=== PATIENT | female | born 1980 | race Caucasian/White ===

== ENCOUNTER 2017-01-26 15:27 | Inpatient (IN) | payer BC, OTHER ==
[~2017-01-26] VITALS: Ht 170.2 cm; Wt 57.9 kg
[~2017-01-26 15:27] MED LIST: GLUC1CAP14; MOBI7.5T PO; TRI SPRINTEC; Z.0.BCPILL
[2017-01-26 15:41] VITALS: BP 115/64; PULSE 124; RESP 20; TEMP 101; O2SAT 100
[2017-01-26 15:45] VITALS: BP 115/64; PULSE 124; RESP 20; TEMP 101; O2SAT 100
[2017-01-26 15:53] VITALS: BP 115/64; PULSE 121; RESP 20; TEMP 101; O2SAT 100
[2017-01-26] MEDS ORDERED: SODIUM CHLOR 0.9% 1000 ML INJ 1,000 ML IV ONE ×2 (15:57→17:45)
[2017-01-26] MEDS ORDERED: SODIUM CHLOR 0.9% 1000 ML INJ 800 ML IV ONE (15:57)
[2017-01-26] MEDS ORDERED: birth control (16:00)
[2017-01-26] MEDS ORDERED: CYMB60CA PO (16:00)
[2017-01-26] MEDS ORDERED: METO25TA3 PO (16:00)
[2017-01-26] MEDS ORDERED: ACETAMINOPHEN 325 MG TAB PO ONE (16:00)
[2017-01-26] MEDS ORDERED: PRED5TAB PO (16:00)
[2017-01-26] MEDS ORDERED: MORPHINE SULFATE 4 MG/ML INJ IV PUSH ONE ×2 (16:00→17:45)
[2017-01-26] MEDS ORDERED: MELO7.5T4 PO (16:00)
[2017-01-26] MEDS ORDERED: ONDANSETRON HCL 4 MG/2 ML VIAL IV PUSH ONE (16:00)
[2017-01-26] MEDS ORDERED: ZITHTAB PO (16:00)
--- NOTE | 2017-01-26 16:46 | RADRPT ---
EXAM DATE/TIME: 01/26/2017 16:14 [place] COMPARISON: No previous studies available for comparison. INDICATIONS : Fever MEDICAL HISTORY : None. SURGICAL HISTORY : None. ENCOUNTER: Initial ACUITY: 1 day PAIN SCORE: 0/10 LOCATION: chest FINDINGS: A single view of the chest demonstrates the lungs to be symmetrically aerated without evidence of mas s, infiltrate or effusion. The cardiomediastinal contours are unremarkable. Osseous structures are intact. CONCLUSION: No acute disease. Coy Sapp Jr., MD on January 26, 2017 at 16:45 Board Certified Radiologist. This report was verified electronically.
[2017-01-26 16:57] LABS: BASOPHIL % 0.3 % (0.0-2.0); HEMATOCRIT 40.4 % (35.0-46.0); HEMO FLAGS DIFF FINAL; LYMPHOCYTE # 0.3 TH/MM3 (1.0-4.8); MEAN CELL VOLUME 94.2 FL (80.0-100.0); MEAN CORPUSCULAR HEMOGLOBIN 31.6 PG (27.0-34.0); MEAN CORPUSCULAR HGB CONC 33.6 % (32.0-36.0); MONO % 8.4 % (0.0-8.0); NEUT % 87.3 % (16.0-70.0); PLATELET COUNT 183 TH/MM3 (150-450); RED BLOOD COUNT 4.29 MIL/MM3 (4.00-5.30); RED CELL DISTRIBUTION WIDTH 11.6 % (11.6-17.2)
[2017-01-26 16:59] LABS: BACTERIA, URINE RARE /hpf; BLOOD, URINE NEG (NEG); GLUCOSE,URINE NEG (NEG); KETONE, URINE 10 mg/dL (NEG); NITRITE,URINE NEG (NEG); URINE COLOR YELLOW (YELLW/STRAW)
[2017-01-26 17:06] LABS: COMMENT (UR) CATH-CULTURE IND; CULTURE IF INDICATED CATH CULTURE IND
[2017-01-26 17:07] LABS: APTT (PATIENT) 27.1 SEC (24.3-30.1); INTERNATIONAL NORMALIZED RATIO 0.9 RATIO; PROTHROMBIN TIME - PATIENT 10.1 SEC (9.8-11.6)
[2017-01-26 17:17] LABS: ANION GAP 11 MEQ/L (5-15); AST (GOT) 12 U/L (15-37); BICARBONATE 23.5 MEQ/L (21.0-32.0); BLOOD UREA NITROGEN 10 MG/DL (7-18); CHLORIDE 99 MEQ/L (98-107); GLOMERULAR FILTRATION RATE 71 ML/MIN (>89); MAGNESIUM 1.4 MG/DL (1.5-2.5); POTASSIUM 3.6 MEQ/L (3.5-5.1); SODIUM (NA) 133 MEQ/L (136-145)
[2017-01-26 17:23] LABS: ALKALINE PHOSPHATASE 51 U/L (45-117); ALT (GPT) 25 U/L (10-53); TOTAL BILIRUBIN ADULT 0.9 MG/DL (0.2-1.0)
[2017-01-26 17:29] LABS: CREATINE KINASE 66 U/L (26-192)
[2017-01-26] MEDS ORDERED: KETOROLAC TROMETHAMINE 30 MG/ML (IVP) VIAL IV PUSH ONE (17:45)
[2017-01-26 18:03] VITALS: BP 99/57; PULSE 96; RESP 16; TEMP 99; O2SAT 100
[2017-01-26] MEDS: SODIUM CHLOR 0.45% 1000 ML INJ 1,000 ML IV SCH (18:12)
[2017-01-26] MEDS ORDERED: NALOXONE HCL 0.4 MG/ML AMP IV PRN (18:15)
[2017-01-26] MEDS ORDERED: SENNOSIDES 8.6 MG TAB PO PRN (18:15)
[2017-01-26] MEDS ORDERED: BISACODYL 10 MG SUPP RECTAL PRN (18:15)
[2017-01-26] MEDS ORDERED: ONDANSETRON HCL 4 MG/2 ML VIAL IVP PRN (18:15)
[2017-01-26] MEDS ORDERED: LACTULOSE SYRUP 20 GM/30 ML CUP PO PRN (18:15)
[2017-01-26] MEDS ORDERED: SODIUM CHLORIDE 0.9% FLUSH 10 ML FLUSH IV FLUSH PRN (18:15)
[2017-01-26] MEDS ORDERED: ACETAMINOPHEN 325 MG TAB PO PRN (18:15)
[2017-01-26] MEDS ORDERED: MAGNESIUM HYDROXIDE SUSP 30 ML CUP PO PRN (18:15)
--- NOTE | 2017-01-26 18:31 | PD ---
HPI Chief Complaint: Fever Time Seen by Provider: 15:57 Travel History International Travel<30 days: Yes Contact w/Intl Traveler<30days: [place] Country Traveled to: [place] Traveled to known affect area: No History of Present Illness HPI The patient is a 36-year-old female who presents to the emergency department for fever and headache. The patient was recently in [place], return Thursday night. Prior to arrival she did have some mild nausea with a few intermittent episodes of loose stool, approximate 5-6 times a day which she attributed to the food and eating fruit in [place]. The patient states she developed a headache earlier today which is retro-orbital, nonradiating, and is associated with some posterior head pain, neck pain, back pain, and diffuse myalgias and body aches. The patient was seen at an urgent care earlier today where she had an influenza screen performed which was negative. The patient returned home, however, her pain increased and was severe, 10/10. She compares the pain she had earlier today when she had osteomyelitis several years ago after being placed on prednisone. She denies any cough, sore throat, or dysuria. The patient denies any visible rash. Immunizations are up-to-date. No family members have similar symptoms. PFSH Past Medical History Arthritis: Yes (Rheumatoid) Autoimmune Disease: Yes (RA) Blood Disorders: No Depression: Yes Heart Rhythm Problems: Yes Cancer: No Cardiovascular Problems: Yes High Cholesterol: No Chemotherapy: No Chest Pain: Yes Congestive Heart Failure: No Endocrine: No Gastrointestinal Disorders: Yes GERD: Yes (Indigestion) Genitourinary: Yes Hepatitis: No Hiatal Hernia: No Hypertension: No Immune Disorder: Yes Kidney Stones: No Musculoskeletal: No Neurologic: No Psychiatric: No Reproductive: No Respiratory: No Immunizations Current: Yes Myocardial Infarction: No Radiation Therapy: No Renal Failure: No Ulcer: Yes ?: Not LMP: 01/16/2017 : 1 Para: 0 : 1 Past Surgical History Abdominal Surgery: No AICD: No Appendectomy: No Arteriovenous Shunt: No Cardiac Surgery: No Cholecystectomy: No Ear Surgery: No Endocrine Surgery: No Eye Surgery: No Genitourinary Surgery: No Gynecologic Surgery: No Insulin Pump: No Joint Replacement: No Oral Surgery: No Pacemaker: No Thoracic Surgery: No Other Surgery: Yes (Breast) Social History Alcohol Use: Yes (SOCIALLY) Tobacco Use: No Substance Use: No Allergies-Medications (Allergen,Severity, Reaction): Coded Allergies: penicillin G (Unverified Allergy, Severe, 01/26/17) latex (Unverified Allergy, Intermediate, Itching, 01/26/17) cephalexin (Unverified Allergy, Mild, 01/26/17) Reported Meds & Prescriptions Reported Meds & Active Scripts Active Reported [ control] Zithromax Z-Nicolas (Azithromycin) 250 Mg Dspk 250 Mg PO DIRECTED 500 MG (2 tabs) day 1, then 1 tab days 2-5. Prednisone 5 Mg Tab 5 Mg PO BID Meloxicam 7.5 Mg Tab 7.5 Mg PO DAILY PRN Metoprolol Tartrate 25 Mg Tab 25 Mg PO BID Cymbalta DR (Duloxetine HCl) 60 Mg Capdr 60 Mg PO DAILY [tri-sprintec] Review of Systems Except as stated in HPI: all other systems reviewed are Neg General / Constitutional: Positive: Fever Eyes: Positive: Photophobia HENT: Positive: Headaches, Neck Pain Cardiovascular: No: Chest Pain or Discomfort Respiratory: No: Cough, Shortness of Breath Gastrointestinal: Positive: Nausea, Diarrhea, No: Vomiting, Abdominal Pain Genitourinary: No: Dysuria Musculoskeletal: Positive: Myalgias, Arthralgias, Pain Skin: No Rash Neurologic: Positive: Headache, No: Change in Mentation, Paresthesia, Sensory Disturbance Physical Exam Narrative GENERAL: Awake, alert, pleasant 36 year-old female who appears her stated age and appears in moderate discomfort. SKIN: Focused skin assessment warm/dry. HEAD: Atraumatic. Normocephalic. EYES: Pupils equal and round. Pupils are 4 mm bilateral and reactive.. ENT: No nasal bleeding or discharge. Mucous membranes pink and moist. No erythema or exudate noted. NECK: Trachea midline. No JVD. No meningeal signs noted. CARDIOVASCULAR: Regular, tachycardic with a heart rate of 120. RESPIRATORY: No accessory muscle use. Clear to auscultation. Breath sounds equal bilaterally. GASTROINTESTINAL: Abdomen soft, non-tender, nondistended. No rebound tenderness. Back: No CVA tenderness. MUSCULOSKELETAL: No obvious deformities. No clubbing. No cyanosis. No edema. NEUROLOGICAL: Awake and alert. No obvious cranial nerve deficits. Motor grossly within normal limits. Normal speech. Nonfocal on exam. PSYCHIATRIC: Appropriate mood and affect; insight and judgment normal. Data Data Last Documented VS Vital Signs Date Time Temp Pulse Resp B/P (MAP) Pulse Ox O2 Delivery O2 Flow Rate FiO2 01/26/17 18:03 99.0 96 16 99/57 (71) 100 Nasal Cannula 2.00 Orders Orders Electrocardiogram (01/26/17 15:57) Complete Blood Count With Diff (01/26/17 15:57) Comprehensive Metabolic Panel (01/26/17 15:57) Prothrombin Time / Inr (Pt) (01/26/17 15:57) Act Partial Throm Time (Ptt) (01/26/17 15:57) Lactic Acid Sepsis Protocol (01/26/17 15:57) Magnesium (Mg) (01/26/17 15:57) Lipase (01/26/17 15:57) Ckmb (Isoenzyme) Profile (01/26/17 15:57) Troponin I (01/26/17 15:57) Urinalysis - C+S If Indicated (01/26/17 15:57) Lumbar Puncture (01/26/17 15:57) Csf Culture And Gram Stain (01/26/17 15:57) Influenzae A/B Antigen (01/26/17 15:57) Blood Culture (01/26/17 15:57) Chest, Single Ap (01/26/17 15:57) Blood Glucose (01/26/17 15:57) Ecg Monitoring (01/26/17 15:57) Iv Access Insert/Monitor (01/26/17 15:57) Oximetry (01/26/17 15:57) Oxygen Administration (01/26/17 15:57) Acetaminophen (Tylenol) (01/26/17 16:00) Sodium Chlor 0.9% 1000 Ml Inj (Ns 1000 M (01/26/17 15:57) Sodium Chlor 0.9% 1000 Ml Inj (Ns 1000 M (01/26/17 15:57) Malaria (01/26/17 15:57) Morphine Inj (Morphine Inj) (01/26/17 16:00) Ondansetron Inj (Zofran Inj) (01/26/17 16:00) Type In Test Lab Collected (01/26/17 16:15) Urine Culture (01/26/17 16:13) Sodium Chlor 0.9% 1000 Ml Inj (Ns 1000 M (01/26/17 17:45) Morphine Inj (Morphine Inj) (01/26/17 17:45) Ketorolac Inj (Toradol Inj) (01/26/17 17:45) Admit Order (Ed Use Only) (01/26/17 18:06) Labs Laboratory Tests Test 01/26/17 16:13 01/26/17 16:20 01/26/17 16:25 01/26/17 17:00 Urine Color YELLOW Urine Turbidity CLEAR Urine pH 5.0 Urine Specific [place] 1.012 Urine Protein NEG mg/dL Urine Glucose (UA) NEG mg/dL Urine Ketones 10 mg/dL Urine Occult Blood NEG Urine Nitrite NEG Urine Bilirubin NEG Urine Urobilinogen LESS THAN 2.0 MG/DL Urine Leukocyte Esterase NEG Urine RBC LESS THAN 1 /hpf Urine Bacteria RARE /hpf Microscopic Urinalysis Comment CATH-CULTURE IND Blood Urea Nitrogen 10 MG/DL Creatinine 0.90 MG/DL Random Glucose 96 MG/DL Total Protein 6.9 GM/DL Albumin 3.6 GM/DL Calcium Level 7.9 MG/DL Magnesium Level 1.4 MG/DL Alkaline Phosphatase 51 U/L Aspartate Amino Transf (AST/SGOT) 12 U/L Alanine Aminotransferase (ALT/SGPT) 25 U/L Total Bilirubin 0.9 MG/DL Sodium Level 133 MEQ/L Potassium Level 3.6 MEQ/L Chloride Level 99 MEQ/L Carbon Dioxide Level 23.5 MEQ/L Anion Gap 11 MEQ/L Estimat Glomerular Filtration Rate 71 ML/MIN Total Creatine Kinase 66 U/L Troponin I LESS THAN 0.02 NG/ML Lipase 113 U/L White Blood Count 8.0 TH/MM3 Red Blood Count 4.29 MIL/MM3 Hemoglobin 13.6 GM/DL Hematocrit 40.4 % Mean Corpuscular Volume 94.2 FL Mean Corpuscular Hemoglobin 31.6 PG Mean Corpuscular Hemoglobin Concent 33.6 % Red Cell Distribution Width 11.6 % Platelet Count 183 TH/MM3 Mean Platelet Volume 8.4 FL Neutrophils (%) (Auto) 87.3 % Lymphocytes (%) (Auto) 4.0 % Monocytes (%) (Auto) 8.4 % Eosinophils (%) (Auto) 0.0 % Basophils (%) (Auto) 0.3 % Neutrophils # (Auto) 7.0 TH/MM3 Lymphocytes # (Auto) 0.3 TH/MM3 Monocytes # (Auto) 0.7 TH/MM3 Eosinophils # (Auto) 0.0 TH/MM3 Basophils # (Auto) 0.0 TH/MM3 CBC Comment DIFF FINAL Differential Comment Prothrombin Time 10.1 SEC Prothromb Time International Ratio 0.9 RATIO Activated Partial Thromboplast Time 27.1 SEC Lactic Acid Level 1.4 mmol/L MDM Medical Decision Making Medical Screen Exam Complete: Yes Emergency Medical Condition: Yes Medical Record Reviewed: Yes Interpretation(s) EKG reveals sinus tachycardia with a heart rate of 108. Short NH interval of 112 ms. Nonspecific T-wave changes. Last Impressions Chest X-Ray 01/26/17 1550 Signed Impressions: Service Date/Time: Thursday, January 26, 2017 16:14 - CONCLUSION: No acute disease. Coy Sapp Jr., MD Laboratory Tests Test 01/26/17 16:13 01/26/17 16:20 01/26/17 16:25 01/26/17 17:00 Urine Color YELLOW Urine Turbidity CLEAR Urine pH 5.0 Urine Specific [place] 1.012 Urine Protein NEG mg/dL Urine Glucose (UA) NEG mg/dL Urine Ketones 10 mg/dL Urine Occult Blood NEG Urine Nitrite NEG Urine Bilirubin NEG Urine Urobilinogen LESS THAN 2.0 MG/DL Urine Leukocyte Esterase NEG Urine RBC LESS THAN 1 /hpf Urine Bacteria RARE /hpf Microscopic Urinalysis Comment CATH-CULTURE IND Blood Urea Nitrogen 10 MG/DL Creatinine 0.90 MG/DL Random Glucose 96 MG/DL Total Protein 6.9 GM/DL Albumin 3.6 GM/DL Calcium Level 7.9 MG/DL Magnesium Level 1.4 MG/DL Alkaline Phosphatase 51 U/L Aspartate Amino Transf (AST/SGOT) 12 U/L Alanine Aminotransferase (ALT/SGPT) 25 U/L Total Bilirubin 0.9 MG/DL Sodium Level 133 MEQ/L Potassium Level 3.6 MEQ/L Chloride Level 99 MEQ/L Carbon Dioxide Level 23.5 MEQ/L Anion Gap 11 MEQ/L Estimat Glomerular Filtration Rate 71 ML/MIN Total Creatine Kinase 66 U/L Troponin I LESS THAN 0.02 NG/ML Lipase 113 U/L White Blood Count 8.0 TH/MM3 Red Blood Count 4.29 MIL/MM3 Hemoglobin 13.6 GM/DL Hematocrit 40.4 % Mean Corpuscular Volume 94.2 FL Mean Corpuscular Hemoglobin 31.6 PG Mean Corpuscular Hemoglobin Concent 33.6 % Red Cell Distribution Width 11.6 % Platelet Count 183 TH/MM3 Mean Platelet Volume 8.4 FL Neutrophils (%) (Auto) 87.3 % Lymphocytes (%) (Auto) 4.0 % Monocytes (%) (Auto) 8.4 % Eosinophils (%) (Auto) 0.0 % Basophils (%) (Auto) 0.3 % Neutrophils # (Auto) 7.0 TH/MM3 Lymphocytes # (Auto) 0.3 TH/MM3 Monocytes # (Auto) 0.7 TH/MM3 Eosinophils # (Auto) 0.0 TH/MM3 Basophils # (Auto) 0.0 TH/MM3 CBC Comment DIFF FINAL Differential Comment Prothrombin Time 10.1 SEC Prothromb Time International Ratio 0.9 RATIO Activated Partial Thromboplast Time 27.1 SEC Lactic Acid Level 1.4 mmol/L Differential Diagnosis Differential diagnosis includes dengue fever, malaria, viral syndrome, influenza , pyelonephritis, pneumonia, meningitis. Narrative Course IV was established, labs are drawn and sent, and the patient was placed on cardiac telemetry monitoring and continuous pulse oximetry monitoring. EKG was ordered and interpreted. The patient was administered 3 L of IV fluids, morphine, Zofran, and Toradol for her symptoms. I do discussion with the patient and her regarding a lumbar puncture prior to the administration of Toradol, after discussion with the patient and her , they did not want a lumbar puncture performed. I did have a discussion with micro-/lab, dengue IgM/IgG and antigen were sent for outpatient tests. Malaria smear was performed, was negative. UA is negative for pyelonephritis. Chest x-rays negative for pneumonia. The patient was administered a second dose of morphine for continuing pain. The patient will be 23 hour observation to the medical service for symptomatic treatment and repeat of her platelets and kidney function, to assess for possible hemorrhage. Physician Communication Physician Communication I discussed the patient Dr. Canchola who agrees with 23 hour observation. Diagnosis Primary Impression: SIRS (systemic inflammatory response syndrome) Additional Impression: Dengue Admitting Information Admitting Physician Requests: Observation Condition: Stable Aram Duvall MD Jan 26, 2017 18:30
--- NOTE | 2017-01-26 19:00 | HHI.PR ---
Objective Objective Results - Vital Signs Date Time Temp Pulse Resp B/P (MAP) Pulse Ox O2 Delivery O2 Flow Rate FiO2 01/26/17 18:03 99.0 96 16 99/57 (71) 100 Nasal Cannula 2.00 01/26/17 15:53 101.0 121 20 115/64 (81) 100 Nasal Cannula 3.00 01/26/17 15:53 124 20 100 Nasal Cannula 3.00 01/26/17 15:53 101.0 121 20 115/64 (81) 100 Nasal Cannula 3.00 01/26/17 15:45 100 Nasal Cannula 3.00 01/26/17 15:45 101.0 124 20 115/64 (81) 100 Nasal Cannula 3.00 01/26/17 15:41 101.0 124 20 115/64 (81) 100 Result Diagram: 01/26/17 1625 01/26/17 1620 A/P Assessment and Plan [id number] Febrile illness Hyponatremia low MAG level Hx RA Hx Depression Myalgias Headache R/O Malaria Poss. gastroenteritis Lisandra Ruiz Jan 26, 2017 19:00
[2017-01-26 19:41] VITALS: BP 93/54; PULSE 93; RESP 12; TEMP 98.1; O2SAT 95
[2017-01-26] MEDS: LEVOFLOXACIN 500 MG PREMIX INJ 100 ML IV SCH (20:35)
[2017-01-26] MEDS: HEPARIN SODIUM - SQ 10,000 UNITS/ML VIAL SQ SCH (20:36)
[2017-01-26] MEDS: SODIUM CHLORIDE 0.9% FLUSH 10 ML FLUSH IV FLUSH SCH (21:00)
[2017-01-26] MEDS: METOPROLOL TARTRATE 25 MG TAB PO SCH (21:00)
[2017-01-26 22:30] VITALS: BP 96/55; PULSE 94; RESP 18; TEMP 97.9; O2SAT 100
[2017-01-26] MEDS ORDERED: oxyCODONE/ACETAMINOPHEN 10 MG/325 MG TAB PO PRN (23:15)
[2017-01-27] MEDS: SODIUM CHLOR 0.45% 1000 ML INJ 1,000 ML IV SCH ×3 (01:00→17:46)
[2017-01-27 04:00] VITALS: BP 86/50; PULSE 80; RESP 18; TEMP 97.8; O2SAT 99
[2017-01-27] MEDS: oxyCODONE/ACETAMINOPHEN 5 MG/325 MG TAB PO PRN ×4 (04:02→20:57)
[2017-01-27] MEDS ORDERED: SODIUM CHLORID 0.9% 500 ML INJ 500 ML IV ONE (04:30)
[2017-01-27 05:15] VITALS: BP 94/56; PULSE 92; RESP 18
--- NOTE | 2017-01-27 07:29 | MH ---
cc: FRANCESCA ENGLISH MD DATE OF ADMISSION 01/26/2017 DATE OF 1980 CHIEF COMPLAINT Fever, body aches. Travel out of the country recent [place]. HISTORY OF PRESENT ILLNESS This is a pleasant 36-year-old female who presented to the emergency room with fever and generalized myalgias. The patient also had some symptoms of diarrhea and abdominal cramping. She recently returned from a trip from [place] Thursday. States she had been in her usual state of health up until the past 24 hours. She did note some intermittent episodes of diarrhea and abdominal cramping. Earlier today the patient developed a headache according to the record retroorbital, nonradiating, associated with posterior head pain, neck pain, back pain and diffuse myalgias. The patient did note some mild nausea. Denies any dysuria. No recent weight gain or weight loss. She denies any type of rash but does note that her myalgia, pain and headache was 10/10 today. She was seen in the Urgent Care, had a flu screen done which was negative and was given a Z-Nicolas and returned home. The patient states she did not get to feeling any better so she came in for further evaluation. PAST MEDICAL HISTORY Medical history: 1. Rheumatoid arthritis. 2. Depression. 3. Some palpitations. 4. Chest pain in the past. 5. Gastroesophageal reflux disease. 6. Indigestion. 7. Last monthly period 01/16/2017. 8. 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 PAST SURGICAL HISTORY 1. Breast augmentation. 2. Fusion of the right sacroiliac joint. 3. Right ankle surgery. ALLERGIES LATEX, PENICILLIN-G AND CEPHALEXIN. MEDICATIONS 1. Z Nicolas that was given to her today. 2. Prednisone. 3. Meloxicam. 4. Metoprolol. 5. Cymbalta. SOCIAL HISTORY The patient is , currently lives at home with her . Denies any tobacco or illicit drug use. Social alcohol use, mostly wine. REVIEW OF SYSTEMS 12-point review was obtained. Positives noted in HPI which include her generalized myalgias, back pain, headache, extreme body aches, pain at 10/10, some nausea, diarrhea, abdominal cramping. Other systems not mentioned negative or unremarkable. PHYSICAL EXAMINATION VITAL SIGNS: Temperature has been as high as 101, now 99, pulse initially 124 on admission now 96, respiratory rate 16, blood pressure initially on admission 115/64, now 99/57. O2 sat 100 currently on 2 liters nasal cannula. GENERAL: Well-nourished, well-developed white female looks to be her stated age, resting on a stretcher. She is able to answer questions. Speech is clear. SKIN: [place], mucous membranes warm and dry. HEENT: Atraumatic, normocephalic. Mucous membranes are moist. She has no scleral icterus. No exudate noted. NECK: Supple. CARDIOVASCULAR: S1-S2, very soft murmur audible. No rubs or gallops. Regular rhythm. She has no edema. Pulses are intact. RESPIRATORY: Essentially clear to auscultation anteriorly and posteriorly with no wheezes, rales or rhonchi. ABDOMEN: Soft and nontender, nondistended. Hyperactive bowel sounds in all four quads without tenderness. MUSCULOSKELETAL: Moves her extremities with purpose. No obvious deformities. NEUROLOGIC: She is alert, able to answer simple questions. Speech is clear and normal. PSYCHIATRIC: Mood and affect are appropriate. Insight and judgment are normal. LABORATORY DATA Diagnostic data, WBC count 8, RBC 4.29, hemoglobin 13.6, hematocrit 40.4. Chemistry, sodium 133, potassium 3.6, chloride 99, amnion gap 11, BUN 10, creatinine 0.90, GFR 71, random glucose 96, lactic acid 1.4. Calcium is 7.9, magnesium 1.4, AST 12. Troponin less than 0.02. Lipase 113, albumin 3.6, total protein 6.9. PT INR is 0.9. Urine is yellow clear, pH is 5, specific gravity 1.012, protein negative, glucose negative. Occult blood, nitrates, bilirubin, leukocyte all negative. Urobilinogen less than 2. Urine ketones are 10. Rare bacteria. Cath is indicated. The patient also has pending cultures blood, urine and sputum. IMAGING Show chest x-ray to be a normal exam. No acute disease. ASSESSMENT/PLAN 1. Febrile illness, unknown cause. 2. Hyponatremia, mild. 3. Hypomagnesemia mild. 4. Rule out viral syndrome. 5. Rule out malaria. 6. Rule out UTI. 7. Possible gastroenteritis. Our plan is to admit to observation. The patient had a complete workup in the emergency room for her febrile illness since she has been out of country recently several diagnoses are being ruled out such malaria. Initially lumbar puncture was offered to the patient but she and her declined. Outpatient testing has been ordered. We will continue IV hydration, ECG monitoring, pain control, monitor her bowel regimen and control. Intake and output. Activity will be as tolerated but with assistance for her safety. Kay culture such as blood, sputum and urine. We will reconcile her medications. Continue the ones as warranted. Consult infectious disease for their expert opinion. Place the patient on IV Levaquin with the patient's allergies noted to the penicillin-G, latex and cephalexin. The patient is full code, full aggressive care. We will monitor her labs in the morning for any acute changes in kidney function and symptoms management. Dictated by: DAREK Acevedo MD DARELL Vargas/DARIUS /6:44 PM /7:22 AM
[2017-01-27] MEDS: HEPARIN SODIUM - SQ 10,000 UNITS/ML VIAL SQ SCH (08:00)
[2017-01-27 08:51] VITALS: BP 92/49; PULSE 74; RESP 16; TEMP 98; O2SAT 99
[2017-01-27] MEDS: METOPROLOL TARTRATE 25 MG TAB PO SCH (09:00)
[2017-01-27] MEDS: MAGNESIUM OXIDE 400 MG TAB PO SCH (09:10)
[2017-01-27] MEDS: DULoxetine HCl DR 60 MG CAP PO SCH (09:10)
[2017-01-27] MEDS: SODIUM CHLORIDE 0.9% FLUSH 10 ML FLUSH IV FLUSH SCH ×2 (09:10→21:00)
--- NOTE | 2017-01-27 09:23 | HHI.PR ---
Subjective Subjective Remarks Resting in the bed Still feels weak, Generalized aches and pains Blood pressure has continued to be low Alert (Berry Ruiz) Review of Systems Constitutional Constitutional: Fatigue, Weakness (Berry Ruiz) GI/Abdomen GI/Abdominal Exam: Diarrhea, Abdominal Pain (Berry Ruiz) Musculoskeletal MS: Weakness, Stiffness, Discomfort/Pain (Berry Ruiz) Neurologic Neurologic Remarks Weakness (Berry Ruiz) Psychiatric Psychiatric: Normal Mood, Anxiety (mild) (Berry Ruiz) Vitals/Results Intake & Output 01/27/17 01/27/17 01/28/17 14:59 22:59 06:59 Intake Total 206 ml Balance 206 ml Intake IV Total 206 ml Vital Signs Vital Signs Date Time Temp Pulse Resp B/P (MAP) Pulse Ox O2 Delivery O2 Flow Rate FiO2 01/27/17 08:51 98.0 74 16 92/49 (63) 99 01/27/17 05:15 92 18 94/56 (69) 01/27/17 04:00 97.8 80 18 86/50 (62) 99 01/26/17 22:30 97.9 94 18 96/55 (69) 100 01/26/17 22:09 01/26/17 19:43 95 Nasal Cannula 2.00 01/26/17 19:41 98.1 93 12 93/54 (67) 95 Nasal Cannula 2.00 01/26/17 18:03 99.0 96 16 99/57 (71) 100 Nasal Cannula 2.00 01/26/17 15:53 101.0 121 20 115/64 (81) 100 Nasal Cannula 3.00 01/26/17 15:53 124 20 100 Nasal Cannula 3.00 01/26/17 15:53 101.0 121 20 115/64 (81) 100 Nasal Cannula 3.00 01/26/17 15:45 100 Nasal Cannula 3.00 01/26/17 15:45 101.0 124 20 115/64 (81) 100 Nasal Cannula 3.00 01/26/17 15:41 101.0 124 20 115/64 (81) 100 (Berry Ruiz) CBC/BMP: 01/26/17 1625 01/26/17 1620 Lab Results Laboratory Tests Test 01/26/17 16:13 01/26/17 16:20 01/26/17 16:25 01/26/17 17:00 Urine Color YELLOW Urine Turbidity CLEAR Urine pH 5.0 Urine Specific Linch 1.012 Urine Protein NEG mg/dL Urine Glucose (UA) NEG mg/dL Urine Ketones 10 mg/dL Urine Occult Blood NEG Urine Nitrite NEG Urine Bilirubin NEG Urine Urobilinogen LESS THAN 2.0 MG/DL Urine Leukocyte Esterase NEG Urine RBC LESS THAN 1 /hpf Urine Bacteria RARE /hpf Microscopic Urinalysis Comment CATH-CULTURE IND Blood Urea Nitrogen 10 MG/DL Creatinine 0.90 MG/DL Random Glucose 96 MG/DL Total Protein 6.9 GM/DL Albumin 3.6 GM/DL Calcium Level 7.9 MG/DL Magnesium Level 1.4 MG/DL Alkaline Phosphatase 51 U/L Aspartate Amino Transf (AST/SGOT) 12 U/L Alanine Aminotransferase (ALT/SGPT) 25 U/L Total Bilirubin 0.9 MG/DL Sodium Level 133 MEQ/L Potassium Level 3.6 MEQ/L Chloride Level 99 MEQ/L Carbon Dioxide Level 23.5 MEQ/L Anion Gap 11 MEQ/L Estimat Glomerular Filtration Rate 71 ML/MIN Total Creatine Kinase 66 U/L Troponin I LESS THAN 0.02 NG/ML Lipase 113 U/L White Blood Count 8.0 TH/MM3 Red Blood Count 4.29 MIL/MM3 Hemoglobin 13.6 GM/DL Hematocrit 40.4 % Mean Corpuscular Volume 94.2 FL Mean Corpuscular Hemoglobin 31.6 PG Mean Corpuscular Hemoglobin Concent 33.6 % Red Cell Distribution Width 11.6 % Platelet Count 183 TH/MM3 Mean Platelet Volume 8.4 FL Neutrophils (%) (Auto) 87.3 % Lymphocytes (%) (Auto) 4.0 % Monocytes (%) (Auto) 8.4 % Eosinophils (%) (Auto) 0.0 % Basophils (%) (Auto) 0.3 % Neutrophils # (Auto) 7.0 TH/MM3 Lymphocytes # (Auto) 0.3 TH/MM3 Monocytes # (Auto) 0.7 TH/MM3 Eosinophils # (Auto) 0.0 TH/MM3 Basophils # (Auto) 0.0 TH/MM3 CBC Comment DIFF FINAL Differential Comment Prothrombin Time 10.1 SEC Prothromb Time International Ratio 0.9 RATIO Activated Partial Thromboplast Time 27.1 SEC Lactic Acid Level 1.4 mmol/L Test 01/27/17 08:55 Microbiology Microbiology 01/26/17 Malaria Smear (BRUNO) - Preliminary, Resulted NEGATIVE - NO BLOOD PARASITES SEEN.... 01/26/17 Aerobic Blood Culture, Received Pending 01/26/17 Anaerobic Blood Culture, Received Pending 01/26/17 Aerobic Blood Culture, Received Pending 01/26/17 Anaerobic Blood Culture, Received Pending 01/26/17 Influenza Types A,B Antigen (BRUNO) - Final, Complete NEGATIVE FOR FLU A AND B ANTIGEN.... 01/26/17 Urine Culture, Received Pending Imaging Remarks Last Impressions Chest X-Ray 01/26/17 1557 Signed Impressions: Service Date/Time: Thursday, January 26, 2017 16:14 - CONCLUSION: No acute disease. Coy Sapp Jr., MD Current Medications Administered Medications Medications (Trade) Dose Ordered Sig/Jarocho Route PRN Reason Start Time Stop Time Status Last Admin Dose Admin Sodium Chloride 1,000 ml @ 75 mls/hr [id number] IV 01/26/17 18:12 01/27/17 09:13 Sodium Chloride (NS Flush) 2 ml BID IV FLUSH 01/26/17 21:00 01/27/17 09:10 Acetaminophen (Tylenol) 650 mg Q4H PRN PO TEMP > 100.4 01/26/17 18:15 01/27/17 09:09 Heparin Sodium (Porcine) (Heparin Inj) 5,000 units Q12H SQ 01/26/17 20:00 01/26/17 20:36 Duloxetine HCl (Cymbalta Dr) 60 mg DAILY PO 01/27/17 09:00 01/27/17 09:10 Levofloxacin/ Dextrose 100 ml @ 100 mls/hr Q24H IV 01/26/17 20:00 01/26/17 20:35 Magnesium Oxide (Mag-Ox) 400 mg DAILY PO 01/27/17 09:00 01/27/17 09:10 Oxycodone/ Acetaminophen (Percocet 5-325 Mg) 1 tab Q4H PRN PO PAIN 1-5 01/26/17 23:15 01/27/17 10:52 Oxycodone/ Acetaminophen (Percocet 10-325 Mg) 1 tab Q4H PRN PO PAIN 6-10 01/26/17 23:15 01/27/17 00:24 (Brery Ruiz FAMILY INDEPENDENCE CASE MANAGER) Physical Exam General General Appearance: Well Developed, Well Nourished, Pale, Anxious (Beryr Ruiz M. FAMILY INDEPENDENCE CASE MANAGER) Eyes Eye Exam: Pupils Equal, Pupils Reactive (Berry Ruiz M. FAMILY INDEPENDENCE CASE MANAGER) Ears & Nose Ears & Nose Exam: Nasal Mucosa [place]onda (Berry Ruiz. FAMILY INDEPENDENCE CASE MANAGER) Throat Throat Exam: Oral Mucosa [place] & Moist (Berry Ruiz. FAMILY INDEPENDENCE CASE MANAGER) Neck Neck Exam: Neck Supple ([place] NewsBerry devi M. FAMILY INDEPENDENCE CASE MANAGER) Pulmonary Resp Exam: Clear Bilaterally (Sara,Susan M. FAMILY INDEPENDENCE CASE MANAGER) Cardiology CV Exam: Regular, Normal Sinus Rhythm (Berry Ruiz M. FAMILY INDEPENDENCE CASE MANAGER) Gastrointestinal/Abdomen GI Exam: Soft, Bowel Sounds Present, Non-Distended, Bowel Sounds Hyperactive (Berry Ruiz M. FAMILY INDEPENDENCE CASE MANAGER) Genitourinary Exam: Clear Urine (Berry Ruiz. FAMILY INDEPENDENCE CASE MANAGER) Musculoskeletal MS Exam: Joints Intact, Normal Tone, Good Strength (Berry Ruiz M. FAMILY INDEPENDENCE CASE MANAGER) Integumentary Skin Exam: Clear, Warm, Dry, Intact (no rash noted) (Berry Ruiz M. FAMILY INDEPENDENCE CASE MANAGER) Extremeties Extremities Exam: No Edema, Pedal Pulses Palpable (Berry Ruiz M. FAMILY INDEPENDENCE CASE MANAGER) Neurologic Neuro Exam: Awake, Oriented, Speech Clear, Moving All Extremities (Berry Ruiz. FAMILY INDEPENDENCE CASE MANAGER) Assessment/Plan Assessment/Plan 1. Febrile illness, unknown cause. Patient is currently afebrile but still has generalized aches pain and malaise. We'll continue her IV fluids and monitor her symptoms. Continue pain management 2. Hyponatremia, mild. Monitor labs and symptoms, increased IV fluids to 150 an hour 3. Hypomagnesemia mild. Continue to monitor labs and symptoms. Patient now on Mag-Ox 4. Rule out viral syndrome. Still looking at possible viral syndrome from her recent trip to [place]. Symptom management with IV fluids, some labs and cultures are pending 5. Rule out malaria. Initial smear negative, monitor final results 6. Rule out UTI. IV fluids increased, she denies any dysuria, currently being managed on IV Levaquin 7. Possible gastroenteritis. Abdomen soft, still having some diarrhea and hyperactive bowel sounds, symptom management 8. Hypotension, Increased IV fluids from 75 cc an hour to 1 50 cc an hour, manual blood pressure checked this morning 84/60. Patient is lying flat denies any symptoms of dizziness. We will continue to monitor every 4 and as warranted a stone her symptoms Vital signs reviewed afebrile, but still having some hypotension, patient usually takes a beta rick which is currently be held Continue to monitor her labs, BMP shows no acute kidney injury, continue to monitor Discharge planning when symptoms are controlled, probably within the next day or 2 Discussed with nurse Discussed with patient Discussed with Dr. Canchola, seen on his behalf (Berry Ruiz) Assessment/Plan pt is seen examined Acute febrile illness/ recent travel to [place]. Viral infection ?? Dengue??? Zika ?Chickengunya etc malaria Ruled out d/w PT d/w berry cont supportive care meets Inpatient criteria / needs IV hydration/pain & fever control & close monitoring Expected LOS is 3 days ,Possible d/c home when stable (Helena Canchola MD) Berry Ruiz Jan 27, 2017 09:23 Helena Canchola MD Jan 27, 2017 12:03
[2017-01-27 09:48] LABS: BICARBONATE 24.8 MEQ/L (21.0-32.0); POTASSIUM 3.9 MEQ/L (3.5-5.1)
[2017-01-27 11:09] LABS: CALCIUM-PROTEIN CORRECTED 7.7 MG/DL (8.5-10.1)
[2017-01-27] MEDS ORDERED: MAGNESIUM SULFATE 1 GM PREMIX 100 ML IV ONE (13:00)
[2017-01-27 13:15] VITALS: BP 87/51; PULSE 75; RESP 16; TEMP 97.5; O2SAT 100
--- NOTE | 2017-01-27 15:12 | EKG ---
Date Performed: 01/26/2017 Time Performed: 16:55:54 PTAGE: 36 years EKG: SINUS TACHYCARDIA WITH SHORT IA INTERVAL POSSIBLE RIGHT VENTRICULAR CONDUCTION DELAY NONSPE CIFIC ST & T-WAVE ABNORMALITY ABNORMAL RHYTHM ECG PREVIOUS TRACING : 07/14/2006 22.03 Since the prior tracing, the patient has developed diffuse nonspecific T-wave changes. Clinical correlation will be important to assess the etiology and exclude myocardial ischemia. DOCTOR: Caridad Lisa Interpretating Date/Time 01/27/2017 15:11:58
[2017-01-27 17:09] VITALS: BP 100/58; PULSE 66; RESP 16; TEMP 97.9; O2SAT 98
--- NOTE | 2017-01-27 17:20 | PD.ID.CON ---
History of Present Illness Service ID Consult Requested By Dr Canchoal Reason for Consult fever in returning traveller Primary Care Physician Catherine Pelayo MD Diagnoses: History of Present Illness 36 yo female tarcvlled to [place] stayed in 5 * resort hotel and presented with diarrhea (< 10 liquid BMs), fever up to 101 F she was started on Levquin bnd both abd pain, diarrhea and fever resolved SHe also c/o excruciating lower back pain following fall couple weeks ago SHe has a rmote h/o R sacroilitis Her w/u shower lymphopenia, nl WBC negative blood clx and negative flu, malaria studies Review of Systems Except as stated in HPI: all other systems reviewed are Neg Past Family Social History Allergies: Coded Allergies: penicillin G (Unverified Allergy, Severe, 01/26/17) latex (Unverified Allergy, Intermediate, Itching, 01/26/17) cephalexin (Unverified Allergy, Mild, 01/26/17) Past Medical History RA sacroilitis Past Surgical History R SI fusion Active Ordered Medications Medications where reviewed in EMR Antibiotics Include: levaquine Family History reviewed non ocntributory Social History No Tobacco. + social ETOH. No Illicit Drugs. Physical Exam Vital Signs Vital Signs Date Time Temp Pulse Resp B/P (MAP) Pulse Ox O2 Delivery O2 Flow Rate FiO2 01/27/17 17:09 97.9 66 16 100/58 (72) 98 01/27/17 13:15 97.5 75 16 87/51 (63) 100 01/27/17 10:09 16 01/27/17 08:51 98.0 74 16 92/49 (63) 99 01/27/17 05:15 92 18 94/56 (69) 01/27/17 04:00 97.8 80 18 86/50 (62) 99 01/26/17 22:30 97.9 94 18 96/55 (69) 100 01/26/17 22:09 01/26/17 19:43 95 Nasal Cannula 2.00 01/26/17 19:41 98.1 93 12 93/54 (67) 95 Nasal Cannula 2.00 01/26/17 18:03 99.0 96 16 99/57 (71) 100 Nasal Cannula 2.00 Physical Exam CONSTITUTIONAL/GENERAL: This is an adequately nourished patient, in no apparent distress. TUBES/LINES/DRAINS: SKIN: No jaundice, rashes, or lesions . Skin temperature appropriate. Not diaphoretic. HEAD: Atraumatic. Normocephalic. EYES: Pupils equal and round and reactive. Extraocular motions intact. No scleral icterus. No injection or drainage. Fundi not examined. ENT: Hearing grossly normal. Nose without bleeding or purulent drainage. Throat without visible erythema, exudates, masses, or lesions. NECK: Trachea midline. Supple, nontender. No palpable thyroid enlargement or nodularity. CARDIOVASCULAR: Regular rate and rhythm without murmurs, gallops, or rubs. No JVD. Peripheral pulses symmetric. RESPIRATORY/CHEST: Symmetric, unlabored respirations. Clear to auscultation. Breath sounds equal bilaterally. No wheezes, rales, or rhonchi. GASTROINTESTINAL: Abdomen soft, non-tender, nondistended. No hepato-splenomegaly , or palpable masses. No guarding. Bowel sounds present. GENITOURINARY: Without palpable bladder distension. MUSCULOSKELETAL: Extremities without clubbing, cyanosis, or edema. No joint tenderness or effusion noted. No calf tenderness. No mottling or clubbing. BACK: tender to palpation over lowe spine No skin changes over it LYMPHATICS: No palpable cervical or supraclavicular adenopathy. NEUROLOGICAL: Awake and alert. Motor and sensory grossly within normal limits. Follows commands. Cognitively sharp. Moves all extremities. PSYCHIATRIC: No obvious anxiety/depression. no apparent hallucinations or other psychotic thought process. Laboratory Laboratory Tests Test 01/27/17 08:55 Blood Urea Nitrogen 7 Creatinine 0.78 Random Glucose 94 Total Protein 5.3 Calcium Level 6.8 Sodium Level 141 Potassium Level 3.9 Chloride Level 112 Carbon Dioxide Level 24.8 Anion Gap 4 Estimat Glomerular Filtration Rate 84 Protein Corrected Calcium 7.7 Date/Time Source Procedure Growth Status 01/26/17 16:25 Blood Peripheral Malaria Smear (BRUNO) - Final NEGATIVE - NO BLOOD PARASITES SEEN.... Complete 01/26/17 17:20 Nasal Aspirate Influenza Types A,B Antigen (BRUNO) - Final NEGATIVE FOR FLU A AND B ANTIGEN.... Complete 01/26/17 16:13 Urine Catheterized Urine Urine Culture - Preliminary NO GROWTH IN 24 HOURS. Resulted Result Diagram: 01/26/17 4870 01/27/17 0855 Imaging Last Impressions Chest X-Ray 01/26/17 1559 Signed Impressions: Service Date/Time: Thursday, January 26, 2017 16:14 - CONCLUSION: No acute disease. Coy Sapp Jr., MD Assessment and Plan Assessment and Plan Fever and diarrhea in returning traveller - rsolved with Levaquine Probably traveller's diarrhea Severe back pain L spine, h/o sacroilitis ck L spine MRI cont Levaquine 5 days stoool for pathogens Maureen Payne MD Jan 27, 2017 17:20
[2017-01-27] MEDS: LEVOFLOXACIN 500 MG PREMIX INJ 100 ML IV SCH (20:58)
[2017-01-27 21:18] VITALS: BP 106/64; PULSE 69; RESP 18; TEMP 98.5; O2SAT 100
[2017-01-28 00:14] VITALS: BP 98/58; PULSE 76; RESP 18; TEMP 98.3; O2SAT 100
[2017-01-28] MEDS: SODIUM CHLOR 0.45% 1000 ML INJ 1,000 ML IV SCH ×2 (01:00→09:07)
[2017-01-28] MEDS: oxyCODONE/ACETAMINOPHEN 5 MG/325 MG TAB PO PRN ×4 (03:59→16:31)
[2017-01-28 04:09] VITALS: BP 103/66; PULSE 78; RESP 18; TEMP 98.5; O2SAT 100
[2017-01-28 06:31] LABS: HEMATOCRIT 35.1 % (35.0-46.0); MEAN CORPUSCULAR HEMOGLOBIN 32.2 PG (27.0-34.0); MEAN CORPUSCULAR HGB CONC 33.9 % (32.0-36.0); PLATELET COUNT 150 TH/MM3 (150-450); RED CELL DISTRIBUTION WIDTH 11.9 % (11.6-17.2); REVIEW FLAG FINAL; WHITE BLOOD COUNT 5.5 TH/MM3 (4.0-11.0)
[2017-01-28] MEDS: MAGNESIUM OXIDE 400 MG TAB PO SCH (08:08)
[2017-01-28] MEDS: DULoxetine HCl DR 60 MG CAP PO SCH (08:09)
[2017-01-28] MEDS: SODIUM CHLORIDE 0.9% FLUSH 10 ML FLUSH IV FLUSH SCH (08:09)
[2017-01-28 08:57] VITALS: BP 116/75; PULSE 73; RESP 18; TEMP 98.2; O2SAT 99
--- NOTE | 2017-01-28 10:41 | HHI.PR ---
Subjective Subjective Remarks Resting in the bed Chief complaint low back pain and headache Pain management effective Feeling somewhat better, from generalized myalgias, able to get a shower this morning (Lisandra Ruiz) Review of Systems Constitutional Constitutional: Fatigue, Weakness (slow gradual improvement) (Lisandra Ruiz) GI/Abdomen GI/Abdominal Exam: Diarrhea, Abdominal Pain (Lisandra Ruiz) Musculoskeletal MS: Weakness, Stiffness, Discomfort/Pain (lumbar area, previous fall several weeks ago) (Lisandra Ruiz) Neurologic Neurologic Remarks Weakness (Lisandra Ruiz) Psychiatric Psychiatric: Normal Mood, Anxiety (mild) (Lisandra Ruiz) Vitals/Results Intake & Output 01/28/17 01/28/17 01/29/17 15:00 23:00 07:00 Intake Total 335 ml Balance 335 ml IV Total 335 ml Vital Signs Vital Signs Date Time Temp Pulse Resp B/P (MAP) Pulse Ox O2 Delivery O2 Flow Rate FiO2 01/28/17 08:57 98.2 73 18 116/75 (89) 99 01/28/17 04:09 98.5 78 18 103/66 (78) 100 01/28/17 00:14 98.3 76 18 98/58 (71) 100 01/27/17 21:18 98.5 69 18 106/64 (78) 100 01/27/17 17:09 97.9 66 16 100/58 (72) 98 01/27/17 13:15 97.5 75 16 87/51 (63) 100 (Lisandra Ruiz) CBC/BMP: 01/28/17 0355 01/27/17 0855 Lab Results Laboratory Tests Test 01/28/17 03:55 White Blood Count 5.5 TH/MM3 Red Blood Count 3.70 MIL/MM3 Hemoglobin 11.9 GM/DL Hematocrit 35.1 % Mean Corpuscular Volume 95.0 FL Mean Corpuscular Hemoglobin 32.2 PG Mean Corpuscular Hemoglobin Concent 33.9 % Red Cell Distribution Width 11.9 % Platelet Count 150 TH/MM3 Mean Platelet Volume 9.6 FL Microbiology Microbiology 01/27/17 , Received Pending Imaging Remarks Last Impressions Chest X-Ray 01/26/17 7306 Signed Impressions: Service Date/Time: Thursday, January 26, 2017 16:14 - CONCLUSION: No acute disease. Coy Sapp Jr., MD Current Medications Administered Medications Medications (Trade) Dose Ordered Sig/Jarocho Route PRN Reason Start Time Stop Time Status Last Admin Dose Admin Sodium Chloride 1,000 ml @ 150 mls/hr Q6H40M IV 01/26/17 18:12 01/28/17 09:07 Sodium Chloride (NS Flush) 2 ml UNSCH PRN IV FLUSH FLUSH AFTER USING IV ACCESS 01/26/17 18:15 01/28/17 09:07 Sodium Chloride (NS Flush) 2 ml BID IV FLUSH 01/26/17 21:00 01/27/17 09:10 Acetaminophen (Tylenol) 650 mg Q4H PRN PO TEMP > 100.4 01/26/17 18:15 01/27/17 09:09 Ondansetron HCl (Zofran Inj) 4 mg Q6H PRN IVP NAUSEA OR VOMITING 01/26/17 18:15 01/28/17 09:06 Duloxetine HCl (Cymbalta Dr) 60 mg DAILY PO 01/27/17 09:00 01/28/17 08:09 Levofloxacin/ Dextrose 100 ml @ 100 mls/hr Q24H IV 01/26/17 20:00 01/27/17 20:58 Magnesium Oxide (Mag-Ox) 400 mg DAILY PO 01/27/17 09:00 01/28/17 08:08 Oxycodone/ Acetaminophen (Percocet 5-325 Mg) 1 tab Q4H PRN PO PAIN 1-5 01/26/17 23:15 01/28/17 08:09 Oxycodone/ Acetaminophen (Percocet 10-325 Mg) 1 tab Q4H PRN PO PAIN 6-10 01/26/17 23:15 01/27/17 00:24 (Lisandra Ruiz) Physical Exam General General Appearance: Well Developed, Pale (gradual improvement) (Lisandra Ruiz) Eyes Eye Exam: Pupils Equal, Pupils Reactive (Lisandra Ruiz) Ears & Nose Ears & Nose Exam: Nasal Mucosa Jasper (Lisandra Ruiz) Throat Throat Exam: Oral Mucosa Jasper & Moist (Lisandra Ruiz M. LASTING FLOORWORKER) Neck Neck Exam: Neck Supple (Lisandra Ruiz M. LASTING FLOORWORKER) Pulmonary Resp Exam: Clear Bilaterally (Sara,Susan M. LASTING FLOORWORKER) Cardiology CV Exam: Regular, Normal Sinus Rhythm (Lisandra Ruiz M. LASTING FLOORWORKER) Gastrointestinal/Abdomen GI Exam: Soft, Bowel Sounds Present, Non-Distended, Bowel Sounds Hyperactive (Lisandra Ruiz M. LASTING FLOORWORKER) Genitourinary Exam: Clear Urine (Lisandra Ruiz. LASTING FLOORWORKER) Musculoskeletal MS Exam: Joints Intact, Normal Tone, Good Strength MS Remarks Low back pain, continues since a fall several weeks ago Myalgias better (Lisandra Ruiz M. LASTING FLOORWORKER) Integumentary Skin Exam: Clear, Warm, Dry, Intact (no rash noted) (Lisandra Ruiz M. LASTING FLOORWORKER) Extremeties Extremities Exam: No Edema, Pedal Pulses Palpable (Lisandra Ruiz M. LASTING FLOORWORKER) Neurologic Neuro Exam: Awake, Oriented, Speech Clear, Moving All Extremities (Lisandra Ruiz M. LASTING FLOORWORKER) Assessment/Plan Assessment/Plan 1. Febrile illness, unknown cause. Patient is currently afebrile, improvement noted from generalized aches pain and malaise. IV fluids continue at 150 an hour, BP improved today systolic normal range, pain management, stool sample today results pending, appreciate ID input and consultation 2. Hyponatremia, mild on admission, now resolved IV hydration continues at 150 an hour, 3. Hypomagnesemia mild. on Mag-Ox, recheck mag level in the morning 4. Rule out viral syndrome. Appreciate ID input, noted probably travelers diarrhea, stool culture taken today, diarrhea 2 this a.m. 5. Rule out malaria. Initial smear negative, monitor final results 6. Ruled out UTI. Asymptomatic, negative urine culture 7. Possible gastroenteritis. Abdomen soft, still having some diarrhea 2 this a.m., bowel sounds active, eating and drinking small amounts of soft foods, no nausea vomiting 8. Hypotension, Resolved, BP normal trends Vital signs reviewed afebrile, other trends normal Labs reviewed, Discharge planning , monitoring symptom control, check MRI lumbar today Discussed with nurse Discussed with patient Discussed with Dr. Canchola, seen on his behalf (Lisandra Ruiz) Assessment/Plan PT IS SEEN & EXAMINED /W PT & HER AT BEDSIDE d/w MR L spine , d/w Dr Hicks , No evid of osteo/diskitis ID input appreciated , rec po levaquin for possible traveller's diarrhea feels better clinically stable /afebrile d/c home see orders f/u pcp (Helena Canchola MD) Lisandra Ruiz Jan 28, 2017 10:41 Helena Canchola MD Jan 28, 2017 18:10
[2017-01-28 12:45] VITALS: BP 98/54; PULSE 67; RESP 18; TEMP 98.5; O2SAT 100
--- NOTE | 2017-01-28 14:25 | RADRPT ---
EXAM DATE/TIME: 01/28/2017 13:03 [facility] COMPARISON: No previous studies available for comparison. INDICATIONS : Lower back pain. Prior fall 1 month ago and prior rt SI osteo. CONTRAST: 11 cc Omniscan (gadodiamide) IV MEDICAL HISTORY : None. SURGICAL HISTORY : rt ankle, rt wrist ENCOUNTER: Subsequent ACUITY: 1 week PAIN SCORE: 4/10 LOCATION: lower back TECHNIQUE: Multiplanar multisequence MRI of the lumbar spine was performed with and without contrast. FINDINGS: The most caudal appearing lumbar vertebra is numbered as L5. VERTEBRAE: Homogeneous signal. Normal alignment. CONUS: Normal level and configuration. POST CONTRAST: No abnormal areas of contrast enhancement are seen. T12-L1: The thecal sac has a normal diameter. No evidence of disc bulge or protrusion. The neural foramina are patent bilaterally. L1-L2: The thecal sac has a normal diameter. No evidence of disc bulge or protrusion. The neural foramina are patent bilaterally. L2-L3: The thecal sac has a normal diameter. No evidence of disc bulge or protrusion. The neural foramina are patent bilaterally. L3-L4: The thecal sac has a normal diameter. No evidence of disc bulge or protrusion. The neural foramina are patent bilaterally. L4-L5: Minimal subacute disc bulge L4-5 with mild desiccation. There is no significant neural impingement. L5-S1: The thecal sac has a normal diameter. No evidence of disc bulge or protrusion. The neural foramina are patent bilaterally. CONCLUSION: Mild disc disease L4-L5 minimal desiccation without natalya herniation. Hernando Hicks MD FACR on January 28, 2017 at 14:23 Board Certified Radiologist. This report was verified electronically.
--- NOTE | 2017-01-28 15:17 | RADRPT ---
EXAM DATE/TIME: 01/28/2017 13:03 [facility] COMPARISON: No previous studies available for comparison. INDICATIONS : Sacralitis. CONTRAST: 11 cc Omniscan (gadodiamide) IV MEDICAL HISTORY : None. SURGICAL HISTORY : Rt wrist/rt ankle. ENCOUNTER: Initial ACUITY: 3 day PAIN SCORE: 0/10 LOCATION: pelvis TECHNIQUE: Multiplanar, multisequence magnetic resonance imaging of the pelvis was performed. FINDINGS: MRI of the pelvis was performed because of history of sacroiliitis. SI joints are normal. Trace fluid is present in the pelvis. Small 1 cm fibroid present in the dome of the uterus. Small less than 1 cm left adnexal cyst. CONCLUSION: Trace fluid in the pelvis without evidence for sacroiliitis. Hernando Hicks MD FACR on January 28, 2017 at 15:14 Board Certified Radiologist. This report was verified electronically.
[2017-01-28] MEDS ORDERED: GADODIAMIDE PF 287 MG/ML 5 ML VIAL (for RAD MRI) IV PUSH ONE (15:41)
--- NOTE | 2017-01-28 16:14 | HHI.IDPN ---
Subjective Subjective Remarks co liquid BMs x 2 MRI done - mild DJD + some abd pain afebrile negative blood clx Antibiotics levaquine Allergies: Coded Allergies: penicillin G (Unverified Allergy, Severe, 01/26/17) latex (Unverified Allergy, Intermediate, Itching, 01/26/17) cephalexin (Unverified Allergy, Mild, 01/26/17) Objective . Vital Signs Date Time Temp Pulse Resp B/P (MAP) Pulse Ox O2 Delivery O2 Flow Rate FiO2 01/28/17 12:45 98.5 67 18 98/54 (69) 100 01/28/17 08:57 98.2 73 18 116/75 (89) 99 01/28/17 04:09 98.5 78 18 103/66 (78) 100 01/28/17 00:14 98.3 76 18 98/58 (71) 100 01/27/17 21:18 98.5 69 18 106/64 (78) 100 01/27/17 17:09 97.9 66 16 100/58 (72) 98 01/28/17 01/28/17 01/29/17 14:59 22:59 06:59 Intake Total 335 ml Balance 335 ml IV Total 335 ml . Laboratory Tests Test 01/26/17 16:25 01/28/17 03:55 White Blood Count 8.0 TH/MM3 5.5 TH/MM3 Red Blood Count 4.29 MIL/MM3 3.70 MIL/MM3 Hemoglobin 13.6 GM/DL 11.9 GM/DL Hematocrit 40.4 % 35.1 % Mean Corpuscular Volume 94.2 FL 95.0 FL Mean Corpuscular Hemoglobin 31.6 PG 32.2 PG Mean Corpuscular Hemoglobin Concent 33.6 % 33.9 % Red Cell Distribution Width 11.6 % 11.9 % Platelet Count 183 TH/MM3 150 TH/MM3 Mean Platelet Volume 8.4 FL 9.6 FL Neutrophils (%) (Auto) 87.3 % Lymphocytes (%) (Auto) 4.0 % Monocytes (%) (Auto) 8.4 % Eosinophils (%) (Auto) 0.0 % Basophils (%) (Auto) 0.3 % Neutrophils # (Auto) 7.0 TH/MM3 Lymphocytes # (Auto) 0.3 TH/MM3 Monocytes # (Auto) 0.7 TH/MM3 Eosinophils # (Auto) 0.0 TH/MM3 Basophils # (Auto) 0.0 TH/MM3 CBC Comment DIFF FINAL Differential Comment Laboratory Tests Test 01/26/17 16:20 01/26/17 16:25 01/27/17 08:55 Blood Urea Nitrogen 10 MG/DL 7 MG/DL Creatinine 0.90 MG/DL 0.78 MG/DL Random Glucose 96 MG/DL 94 MG/DL Total Protein 6.9 GM/DL 5.3 GM/DL Albumin 3.6 GM/DL Calcium Level 7.9 MG/DL 6.8 MG/DL Magnesium Level 1.4 MG/DL Alkaline Phosphatase 51 U/L Aspartate Amino Transf (AST/SGOT) 12 U/L Alanine Aminotransferase (ALT/SGPT) 25 U/L Total Bilirubin 0.9 MG/DL Sodium Level 133 MEQ/L 141 MEQ/L Potassium Level 3.6 MEQ/L 3.9 MEQ/L Chloride Level 99 MEQ/L 112 MEQ/L Carbon Dioxide Level 23.5 MEQ/L 24.8 MEQ/L Anion Gap 11 MEQ/L 4 MEQ/L Estimat Glomerular Filtration Rate 71 ML/MIN 84 ML/MIN Total Creatine Kinase 66 U/L Troponin I LESS THAN 0.02 NG/ML Lipase 113 U/L Lactic Acid Level 1.4 mmol/L Protein Corrected Calcium 7.7 MG/DL Beta HCG, Qualitative LESS THAN 1 MIU/ML Microbiology Date/Time Source Procedure Growth Status 01/26/17 16:25 Blood Peripheral Malaria Smear (BRUNO) - Final NEGATIVE - NO BLOOD PARASITES SEEN.... Complete 01/26/17 16:25 Blood Peripheral Aerobic Blood Culture - Preliminary NO GROWTH IN 2 DAYS Resulted 01/26/17 16:25 Blood Peripheral Anaerobic Blood Culture - Preliminary NO GROWTH IN 2 DAYS Resulted 01/26/17 16:25 Blood Peripheral Aerobic Blood Culture - Preliminary NO GROWTH IN 2 DAYS Resulted 01/26/17 16:25 Blood Peripheral Anaerobic Blood Culture - Preliminary NO GROWTH IN 2 DAYS Resulted 01/27/17 22:00 Stool Stool Pending Received 01/26/17 17:20 Nasal Aspirate Influenza Types A,B Antigen (BRUNO) - Final NEGATIVE FOR FLU A AND B ANTIGEN.... Complete 01/26/17 16:13 Urine Catheterized Urine Urine Culture - Final NO GROWTH IN 48 HOURS. Complete Imaging Last Impressions Pelvis MRI 01/28/17 0000 Signed Impressions: Service Date/Time: Saturday, January 28, 2017 13:03 - CONCLUSION: Trace fluid in the pelvis without evidence for sacroiliitis. Hernando Hicks MD FACR Lumbar Spine MRI 01/28/17 0000 Signed Impressions: Service Date/Time: Saturday, January 28, 2017 13:03 - CONCLUSION: Mild disc disease L4-L5 minimal desiccation without natalya herniation. Hernando Hicks MD FACR Chest X-Ray 01/26/17 1557 Signed Impressions: Service Date/Time: Thursday, January 26, 2017 16:14 - CONCLUSION: No acute disease. Coy Sapp Jr., MD Physical Exam CONSTITUTIONAL/GENERAL: This is an adequately nourished patient, in no apparent distress. TUBES/LINES/DRAINS: SKIN: No jaundice, rashes, or lesions . Skin temperature appropriate. Not diaphoretic. CARDIOVASCULAR: Regular rate and rhythm without murmurs, gallops, or rubs. No JVD. Peripheral pulses symmetric. RESPIRATORY/CHEST: Symmetric, unlabored respirations. Clear to auscultation. Breath sounds equal bilaterally. No wheezes, rales, or rhonchi. GASTROINTESTINAL: Abdomen soft, non-tender, nondistended. No hepato-splenomegaly , or palpable masses. No guarding. Bowel sounds present. MUSCULOSKELETAL: Extremities without clubbing, cyanosis, or edema. NEUROLOGICAL: Awake and alert. Motor and sensory grossly within normal limits. Follows commands. Cognitively sharp. Moves all extremities. PSYCHIATRIC: No obvious anxiety/depression. no apparent hallucinations or other psychotic thought process. Assessment & Plan Remarks Fever and diarrhea in returning traveller - rsolved with Levaquine Probably traveller's diarrhea Severe back pain L spine, h/o sacroilitis = MRI negative except for mild DJD cont Levaquine 5 days, change to PO (3 more doses, including todays') chk stool fro c.diff fu stoool for pathogens OK to d/c pt from ID standpoint Maureen Payne MD Jan 28, 2017 16:14
[2017-01-28 16:56] VITALS: BP 113/63; PULSE 58; RESP 18; TEMP 98.4; O2SAT 99
[2017-01-28] MEDS ORDERED: OXYC1TAB63 PO (18:13)
[2017-01-28] MEDS ORDERED: LEVA500T20 PO (18:13)
[2017-01-28] MEDS ORDERED: LEVOFLOXACIN 500 MG TAB PO SCH (21:00)
[2017-01-29 02:23] LABS: C. DIFF EPI 027 PRESUMPTIVE NEGATIVE (NEGATIVE)
== END 2017-01-28 18:35 | disposition home or self-care (01) | DRG 392 ==
LOC: NEPC 15:27 → INTOOBSV 18:08 → NEDA 18:08 → N05A 22:01 → OBSVTOIN 01-27 12:04
PROVIDERS: ADMIT Specialist; ATTEND Specialist
DX: R19.7 Diarrhea, unspecified (principal); E87.1 Hypo-osmolality and hyponatremia; I95.9 Hypotension, unspecified; E83.42 Hypomagnesemia; R50.9 Fever, unspecified
CPT/HCPCS: 71010; 72158; 72196; 80048; 80053; 81001; 82550; 83605; 83690; 83735; 84155; 84484; 84703; 85025; 85027; 85610; 85730; 87015; 87040; 87086; 87207; 87493; 87506; 87804; 93005; 96361; 96374; 96375; 96376; A9579; G0378; J1644; J1885; J1956; J2270; J2405; J3475; J7030; J7040